=== PATIENT | female | born 1990 | race Caucasian/White ===

== ENCOUNTER → 2016-11-12 | Outpatient (REF) | payer MEDICAID, SELFPAY | LOC: M SFHCADAM 09:13 | PROVIDERS: ATTEND Physician Assistant | DX: Z12.4 Encounter for screening for malignant neoplasm of cervix (principal) ==

== ENCOUNTER → 2017-07-15 | Outpatient (CLI) | payer OTHER ==
[2017-07-15 18:05] LABS: BASO # 0.1 10^3/uL (0.0-0.2); BASO % 0.5 % (0.0-1.0); EOS # 0.1 10^3/uL (0.0-0.50); EOS % 0.5 % (0.0-3.0); IMMATURE GRANULOCYTE % 0.3 % (0-0); LYMPH # 2.6 10^3/uL (1.5-6.5); LYMPH % 19.4 % (24.0-44.0); MEAN CORPUSCULAR HEMOGLOBIN 30.4 pg (27.0-33.0); MEAN CORPUSCULAR HGB CONC 33.1 g/dl (32.0-36.5); MEAN CORPUSCULAR VOLUME 91.8 fl (80.0-96.0); MONO # 0.4 10^3/uL (0.0-0.8); MONO % 2.7 % (0.0-5.0); NEUTROPHILS # 10.1 10^3/uL (1.8-7.7); NEUTROPHILS % 76.6 % (36.0-66.0); PLATELET COUNT, AUTOMATED 203 10^3/uL (150-450); RED CELL DISTRIBUTION WIDTH 12.4 % (11.5-14.5); WHITE BLOOD COUNT 13.2 10^3/uL (4.0-10.0)
[2017-07-15 20:07] LABS: ALBUMIN 4.2 GM/DL (3.2-5.2); ALBUMIN/GLOBULIN RATIO 1.14 (1.00-1.93); ALKALINE PHOSPHATASE 47 U/L (45-117); ALT/SGPT 24 U/L (12-78); AMYLASE 38 U/L (25-115); ANION GAP 10 MEQ/L (8-16); AST/SGOT 9 U/L (15-37); BILIRUBIN,TOTAL 0.2 MG/DL (0.2-1.0); BLOOD UREA NITROGEN 16 MG/DL (7-18); CARBON DIOXIDE LEVEL 21 MEQ/L (21-32); CHLORIDE LEVEL 108 MEQ/L (98-107); GLOMERULAR FILTRATION RATE > 60.0 (>60); GLUCOSE, FASTING 82 MG/DL (70-105); POTASSIUM SERUM 4.5 MEQ/L (3.5-5.1); SODIUM LEVEL 139 MEQ/L (136-145); TOTAL PROTEIN 7.9 GM/DL (6.4-8.2)
== END ==
LOC: M WUC 10:59
PROVIDERS: ATTEND Physician Assistant
DX: R11.10 Vomiting, unspecified (principal)

== ENCOUNTER → 2017-07-19 | Outpatient (REF) | payer OTHER ==
[2017-07-19 13:20] LABS: MEAN CORPUSCULAR HEMOGLOBIN 30.3 pg (27.0-33.0); MEAN CORPUSCULAR HGB CONC 33.6 g/dl (32.0-36.5); MEAN CORPUSCULAR VOLUME 90.3 fl (80.0-96.0); RED CELL DISTRIBUTION WIDTH 12.3 % (11.5-14.5); WHITE BLOOD COUNT 9.7 10^3/uL (4.0-10.0)
[2017-07-19 14:57] LABS: ALBUMIN 3.9 GM/DL (3.2-5.2); ALBUMIN/GLOBULIN RATIO 1.15 (1.00-1.93); ALKALINE PHOSPHATASE 45 U/L (45-117); ALT/SGPT 21 U/L (12-78); ANION GAP 7 MEQ/L (8-16); AST/SGOT 10 U/L (15-37); BILIRUBIN,TOTAL 0.3 MG/DL (0.2-1.0); BLOOD UREA NITROGEN 14 MG/DL (7-18); CARBON DIOXIDE LEVEL 25 MEQ/L (21-32); CHLORIDE LEVEL 109 MEQ/L (98-107); CREATININE FOR GFR 0.59 MG/DL (0.55-1.02); GLOMERULAR FILTRATION RATE > 60.0 (>60); GLUCOSE, FASTING 82 MG/DL (70-105); POTASSIUM SERUM 4.2 MEQ/L (3.5-5.1); SODIUM LEVEL 141 MEQ/L (136-145); TOTAL PROTEIN 7.3 GM/DL (6.4-8.2)
== END ==
LOC: M SFHCADAM 09:54
PROVIDERS: ATTEND Physician Assistant
DX: R11.2 Nausea with vomiting, unspecified (principal)

== ENCOUNTER → 2017-07-28 | Outpatient (CLI) | payer OTHER ==
--- NOTE | 2017-07-28 18:18 | REP ---
Clinical: Nausea and vomiting with abdominal pain. Technique: Chahal scale ultrasound using curved array transducer. Findings: The liver and pancreas are normal in contour, size, and echogenicity without focal hepatic or pancreatic lesions identified. Hyperechoic area adjacent to the right portal vein may reflect hemangioma or nonspecific parenchymal changes. The gallbladder is normal without gallstones, wall thickening or pericholecystic fluid. No biliary ductal dilatation is appreciated, and the common bile duct measures 3.2 mm diameter. The right kidney is normal in reniform shape without hydronephrosis and measures 9.7 x 5.0 x 4.0 cm. No ascites. Visualized portions of the abdominal aorta normal. Impression: 1. Focal area of hyperechoic hepatic parenchyma adjacent to the right portal vein measures 3.4 x 3.8 x 1.2 cm and is otherwise nonspecific. Differential includes, but is not limited to hemangioma and nonspecific parenchymal changes. Consider pre and postcontrast CT of the abdomen using hepatic mass protocol for further evaluation. 2. Otherwise normal right upper quadrant ultrasound.
== END ==
LOC: M WHC 09:19
PROVIDERS: ATTEND Physician Assistant
DX: R11.2 Nausea with vomiting, unspecified (principal)

== ENCOUNTER → 2017-09-19 | Outpatient (CLI) | payer OTHER ==
[2017-09-19 13:02] LABS: PERCENT SATURATION 39.7 % (13.2-45.0)
[2017-09-24 00:06] LABS: H PYLORI SERUM QUANT IgG ABY <0.9 U/mL (0.0-0.8)
== END ==
LOC: M LAB 11:33
PROVIDERS: ATTEND Internal Medicine Gastroenterology
DX: R11.10 Vomiting, unspecified (principal)

== ENCOUNTER → 2020-11-21 | Outpatient (CLI) | payer OTHER | LOC: M WUC 13:07 | PROVIDERS: ATTEND Nurse Practitioner | DX: N91.2 Amenorrhea, unspecified (principal) ==

== ENCOUNTER → 2021-10-23 | Outpatient (CLI) | payer OTHER ==
[2021-10-23 17:25] LABS: HEMATOCRIT 37.1 % (36.0-47.0); HEMOGLOBIN 12.4 g/dl (12.0-15.5); MEAN CORPUSCULAR HEMOGLOBIN 30.7 pg (27.0-33.0); MEAN CORPUSCULAR HGB CONC 33.4 g/dl (32.0-36.5); MEAN CORPUSCULAR VOLUME 91.8 fl (80.0-96.0); PLATELET COUNT, AUTOMATED 354 10^3/uL (150-450); RED BLOOD COUNT 4.04 10^6/uL (4.00-5.40); WHITE BLOOD COUNT 19.3 10^3/uL (4.0-10.0)
[2021-10-23 17:44] LABS: GLUCOSE CHALLENGE TEST 1 HOUR 83 MG/DL (LESS THAN 140)
[2021-10-23 18:38] LABS: HEPATITIS C VIRUS ABY INDEX 0.1 INDEX (<0.8); HIV 1&2 SCREEN CENTAUR NEGATIVE (NEGATIVE)
[2021-10-23 19:06] LABS: GC DNA AMPLIFICATION NEGATIVE (NEGATIVE)
== END ==
LOC: M PLALAB 14:36
PROVIDERS: ATTEND Obstetrics & Gynecology
DX: Z34.82 Encounter for supervision of other normal pregnancy, second trimester (principal); Z36.89 Encounter for other specified antenatal screening

== ENCOUNTER → 2021-11-26 | Outpatient (CLI) | payer OTHER | LOC: M WHC 13:42 | PROVIDERS: ATTEND Obstetrics & Gynecology | DX: Z36.89 Encounter for other specified antenatal screening (principal); Z3A.20 20 weeks gestation of pregnancy ==

== ENCOUNTER 2022-01-11 15:13 | Outpatient (CLI) | payer OTHER ==
[~2022-01-11] VITALS: Ht 160 cm; Wt 100.6 kg
[2022-01-11 15:46] VITALS: BP 117/58
[2022-01-11 16:39] LABS: APPEARANCE, URINE HAZY (CLEAR); BACTERIA, URINE AUTO NEGATIVE (NEGATIVE); BILIRUBIN, URINE AUTO NEGATIVE (NEGATIVE); BLOOD, URINE BLOOD NEGATIVE (NEGATIVE); COLOR, URINE YELLOW (YELLOW); GLUCOSE, URINE (UA) AUTO NEGATIVE (NEGATIVE); KETONE, URINE AUTO TRACE mg/dL (NEGATIVE); LEUKOCYTE ESTERASE, URINE AUTO NEGATIVE (NEGATIVE); MUCUS, URINE SMALL (NEGATIVE); NITRITE, URINE AUTO NEGATIVE (NEGATIVE); PROTEIN, URINE AUTO NEGATIVE (NEGATIVE); RBC, URINE AUTO 0 /HPF (0-3); SPECIFIC GRAVITY URINE AUTO 1.024 (1.002-1.035); SQUAMOUS EPITHELIAL CELL UR AU 3 /HPF (0-6); UROBILINOGEN, URINE AUTO 0.2 mg/dL (0.0-2.0); WBC, URINE AUTO 3 /HPF (0-3)
[2022-01-11] MEDS ORDERED: PRENTAB9 PO (16:53)
[2022-01-11] MEDS ORDERED: ACET650T61 PO (16:53)
[2022-01-11] MEDS ORDERED: HOME MED LIST COMPLETE! XX SCH (16:55)
[2022-01-11] MEDS ORDERED: CALC500C16 PO (17:24)
[2022-01-11 18:15] VITALS: BP 109/66
== END 2022-01-11 18:20 | disposition home or self-care (01) ==
LOC: M LDO 15:13
PROVIDERS: ATTEND Advanced Practice Midwife
DX: O26.892 Other specified pregnancy related conditions, second trimester (principal); R10.30 Lower abdominal pain, unspecified; M54.50 Low back pain, unspecified; O99.212 Obesity complicating pregnancy, second trimester; E66.9 Obesity, unspecified; Z3A.27 27 weeks gestation of pregnancy

== ENCOUNTER → 2022-01-21 | Outpatient (CLI) | payer OTHER ==
[~2022-01-21] MED LIST: ACET650T61 PO; CALC500C16 PO; PRENTAB9 PO
[2022-01-21 16:26] LABS: HEMATOCRIT 32.9 % (36.0-47.0); HEMOGLOBIN 11.2 g/dl (12.0-15.5); MEAN CORPUSCULAR HEMOGLOBIN 32.2 pg (27.0-33.0); MEAN CORPUSCULAR VOLUME 94.5 fl (80.0-96.0); PLATELET COUNT, AUTOMATED 351 10^3/uL (150-450); RED BLOOD COUNT 3.48 10^6/uL (4.00-5.40); WHITE BLOOD COUNT 23.5 10^3/uL (4.0-10.0)
[2022-01-21 17:30] LABS: GC DNA AMPLIFICATION NEGATIVE (NEGATIVE)
== END ==
LOC: M PLALAB 13:08
PROVIDERS: ATTEND Obstetrics & Gynecology
DX: Z36.89 Encounter for other specified antenatal screening (principal); Z3A.24 24 weeks gestation of pregnancy

== ENCOUNTER → 2022-03-18 | Outpatient (REF) | payer OTHER | LOC: M SFHCWAGY 16:46 | PROVIDERS: ATTEND Advanced Practice Midwife | DX: O26.843 Uterine size-date discrepancy, third trimester (principal) ==

== ENCOUNTER → 2022-03-22 | Outpatient (CLI) | payer OTHER | LOC: M WHC 09:24 | PROVIDERS: ATTEND Advanced Practice Midwife | DX: O26.843 Uterine size-date discrepancy, third trimester (principal); Z3A.38 38 weeks gestation of pregnancy ==

== ENCOUNTER 2022-04-15 15:41 | Emergency (ER) | payer OTHER ==
[~2022-04-15] VITALS: Ht 160 cm; Wt 104.6 kg
[~2022-04-15 15:41] MED LIST changes: +IBUP80TA PO; +PERCOCET PO
[2022-04-15 18:19] LABS: HEMOGLOBIN 11.1 g/dl (12.0-15.5); MEAN CORPUSCULAR HEMOGLOBIN 28.9 pg (27.0-33.0); MEAN CORPUSCULAR HGB CONC 31.7 g/dl (32.0-36.5); MEAN CORPUSCULAR VOLUME 91.1 fl (80.0-96.0); PLATELET COUNT, AUTOMATED 608 10^3/uL (150-450); RED BLOOD COUNT 3.84 10^6/uL (4.00-5.40)
[2022-04-15 18:39] LABS: ALBUMIN 2.7 GM/DL (3.2-5.2); ALT/SGPT 15 U/L (12-78); BILIRUBIN,TOTAL 0.2 MG/DL (0.2-1.0); BLOOD UREA NITROGEN 10 MG/DL (7-18); C REACTIVE PROTEIN QUANTITATIV 1.86 MG/DL (0.00-0.30); CALCIUM LEVEL 8.9 MG/DL (8.5-10.1); CARBON DIOXIDE LEVEL 26 MEQ/L (21-32); CHLORIDE LEVEL 109 MEQ/L (98-107); CREATININE FOR GFR 0.58 MG/DL (0.55-1.30); GLOMERULAR FILTRATION RATE > 60.0 (>60); GLUCOSE, FASTING 86 MG/DL (70-100); POTASSIUM SERUM 4.7 MEQ/L (3.5-5.1); SODIUM LEVEL 141 MEQ/L (136-145); TOTAL PROTEIN 6.6 GM/DL (6.4-8.2)
[2022-04-15] MEDS ORDERED: PRED20TA PO (20:22)
[2022-04-15] MEDS ORDERED: predniSONE 20 MG TAB PO ONE (20:25)
[2022-04-15 20:30] VITALS: BP 129/73
== END 2022-04-15 20:50 | disposition home or self-care (01) ==
LOC: M ED 15:41
DX: G51.0 Bell's palsy (principal); K21.9 Gastro-esophageal reflux disease without esophagitis; F17.200 Nicotine dependence, unspecified, uncomplicated; Z86.16 Personal history of COVID-19
CPT/HCPCS: 70450; 70544; 70551; 80053; 85027; 86140; 86618; 99284; J7512

== ENCOUNTER → 2022-10-05 | Outpatient (CLI) | payer OTHER ==
[~2022-10-05] MED LIST changes: +PRED20TA PO
[2022-10-05 14:01] LABS: HCG, SERUM QUALITATIVE POSITIVE (NEGATIVE)
== END ==
LOC: M PLALAB 09:54
PROVIDERS: ATTEND Physician Assistant
DX: N91.2 Amenorrhea, unspecified (principal)

== ENCOUNTER 2022-10-06 08:16 | Emergency (ER) | payer OTHER ==
[~2022-10-06] VITALS: Ht 160 cm; Wt 91.0 kg
[2022-10-06 08:18] VITALS: BP 128/71
== END 2022-10-06 12:14 | disposition left against medical advice (07) ==
LOC: M ED 08:16
DX: Z53.21 Procedure and treatment not carried out due to patient leaving prior to being seen by health care provider (principal)

== ENCOUNTER → 2022-11-02 | Outpatient (CLI) | payer OTHER ==
[2022-11-02 13:59] LABS: HEMATOCRIT 40.7 % (36.0-47.0); HEMOGLOBIN 13.8 g/dl (12.0-15.5); MEAN CORPUSCULAR HEMOGLOBIN 30.8 pg (27.0-33.0); MEAN CORPUSCULAR HGB CONC 33.9 g/dl (32.0-36.5); MEAN CORPUSCULAR VOLUME 90.8 fl (80.0-96.0); PLATELET COUNT, AUTOMATED 393 10^3/uL (150-450); RED BLOOD COUNT 4.48 10^6/uL (4.00-5.40)
[2022-11-02 14:28] LABS: HIV 1&2 SCREEN CENTAUR NEGATIVE (NEGATIVE)
[2022-11-02 15:18] LABS: GC DNA AMPLIFICATION NEGATIVE (NEGATIVE)
== END ==
LOC: M PLALAB 10:48
PROVIDERS: ATTEND Advanced Practice Midwife
DX: Z34.81 Encounter for supervision of other normal pregnancy, first trimester (principal); Z3A.00 Weeks of gestation of pregnancy not specified

== ENCOUNTER → 2023-01-21 | Outpatient (CLI) | payer OTHER | LOC: M WHC 13:37 | PROVIDERS: ATTEND Obstetrics & Gynecology | DX: O34.219 Maternal care for unspecified type scar from previous cesarean delivery (principal); O44.42 Low lying placenta NOS or without hemorrhage, second trimester; Z3A.22 22 weeks gestation of pregnancy ==

== ENCOUNTER → 2023-02-15 | Outpatient (CLI) | payer OTHER ==
[2023-02-15 14:06] LABS: HEMATOCRIT 38.2 % (36.0-47.0); HEMOGLOBIN 12.6 g/dl (12.0-15.5); MEAN CORPUSCULAR HEMOGLOBIN 30.7 pg (27.0-33.0); MEAN CORPUSCULAR VOLUME 92.9 fl (80.0-96.0); PLATELET COUNT, AUTOMATED 367 10^3/uL (150-450); RED BLOOD COUNT 4.11 10^6/uL (4.00-5.40); WHITE BLOOD COUNT 16.3 10^3/uL (4.0-10.0)
[2023-02-15 16:57] LABS: GC DNA AMPLIFICATION NEGATIVE (NEGATIVE)
== END ==
LOC: M PLALAB 09:29
PROVIDERS: ATTEND Obstetrics & Gynecology
DX: Z34.02 Encounter for supervision of normal first pregnancy, second trimester (principal)

== ENCOUNTER → 2023-04-21 | Outpatient (REF) | payer OTHER | LOC: M SFHCWAGY 09:58 | PROVIDERS: ATTEND Advanced Practice Midwife | DX: O34.211 Maternal care for low transverse scar from previous cesarean delivery (principal) ==

== ENCOUNTER → 2023-05-03 | Outpatient (CLI) | payer OTHER ==
[~2023-05-03] MED LIST changes: +SERT50TA29 PO
== END ==
LOC: M WHC 07:30
PROVIDERS: ATTEND Advanced Practice Midwife
DX: O26.843 Uterine size-date discrepancy, third trimester (principal); Z3A.37 37 weeks gestation of pregnancy; O36.63X0 Maternal care for excessive fetal growth, third trimester, not applicable or unspecified

== ENCOUNTER 2023-05-17 05:28 | Inpatient (IN) | payer OTHER ==
[2023-05-17] VITALS (8 sets, daily range): BP systolic 100–111; BP diastolic 49–61; TEMP 98; O2SAT 96–100
[~2023-05-17] VITALS: Ht 160 cm; Wt 115.1 kg
[2023-05-17] MEDS ORDERED: ACET325C5 PO (06:10)
[2023-05-17] MEDS ORDERED: HOME MED LIST COMPLETE! XX SCH (06:15)
[2023-05-17] MEDS ORDERED: LACTATED RINGER'S 1000 ML IV STA (06:32)
[2023-05-17] MEDS ORDERED: BICITRA 30ML SOLN UDC PO ONE (06:35)
[2023-05-17] MEDS ORDERED: LR 1,000 ML IV SCH (06:35)
[2023-05-17] MEDS ORDERED: ceFAZolin SOD 2 GM in IV 1 EA IV ONE (06:35)
[2023-05-17 07:06] LABS: HEMATOCRIT 31.7 % (36.0-47.0); HEMOGLOBIN 10.1 g/dl (12.0-15.5); MEAN CORPUSCULAR HEMOGLOBIN 27.9 pg (27.0-33.0); MEAN CORPUSCULAR HGB CONC 31.9 g/dl (32.0-36.5); MEAN CORPUSCULAR VOLUME 87.6 fl (80.0-96.0); PLATELET COUNT, AUTOMATED 330 10^3/uL (150-450); RED BLOOD COUNT 3.62 10^6/uL (4.00-5.40); WHITE BLOOD COUNT 15.6 10^3/uL (4.0-10.0)
[2023-05-17] MEDS ORDERED: KETOROLAC 60MG 2ML VIAL As Ordered ONE (08:05)
[2023-05-17] MEDS ORDERED: MORPHINE PRES-FREE INJ 10 MG/10 ML VIAL As Ordered ONE (08:05)
[2023-05-17] MEDS ORDERED: ACETAMINOPHEN 1000MG 100ML IV BAG As Ordered ONE (08:05)
[2023-05-17] MEDS ORDERED: PHENYLephrine 500MCG 5ML (100MCG/ML) SYRINGE As Ordered ONE (08:05)
[2023-05-17] MEDS ORDERED: ONDANSETRON 4MG 2ML VIAL As Ordered ONE (08:05)
[2023-05-17] MEDS ORDERED: ePHEDrine SULFATE 25 MG/5 ML(5MG/ML) SYRINGE As Ordered ONE (08:05)
[2023-05-17] MEDS ORDERED: OXYTOCIN 30UNITS IN 0.9% NaCl 500ML IV BAG As Ordered ONE ×2 (08:22→09:30)
[2023-05-17] MEDS ORDERED: HYDROMORPHONE HCL 0.5 MG/ 0.5 ML SYRINGE IV PRN (09:35)
[2023-05-17] MEDS ORDERED: MEPERIDINE 25 MG/ML 1ML VIAL IV PRN (09:35)
[2023-05-17] MEDS ORDERED: METOCLOPRAMIDE INJ 10MG/2ML VIAL IV PRN ×2 (09:35→11:30)
[2023-05-17] MEDS ORDERED: ONDANSETRON 4MG 2ML VIAL IV PRN ×2 (09:35→11:30)
[2023-05-17] MEDS ORDERED: oxyCODONE 5MG TAB PO PRN (09:35)
[2023-05-17] MEDS ORDERED: fentaNYL 100 MCG/2 ML INJECTION IV PRN (09:35)
[2023-05-17] MEDS ORDERED: NALOXONE INJ 0.4MG/1ML VIAL IV PRN ×2 (09:35)
[2023-05-17] MEDS ORDERED: **NOTE PATIENT COMMENT** MISC XX SCH (09:35)
[2023-05-17] MEDS: SLF 3 ML SYR IV SCH ×2 (09:35→17:35)
[2023-05-17] MEDS ORDERED: diphenhydrAMINE 50MG/ML VIAL IV PRN (09:35)
[2023-05-17] MEDS: OXYTOCIN DRIP 30 UNITS in IV 1 EA IV SCH ×3 (09:59→17:35)
[2023-05-17] MEDS ORDERED: MOM 30ML SUSPENSION UDC PO PRN (11:30)
[2023-05-17] MEDS ORDERED: METHYLERGONOVINE MALEATE 0.2 MG TAB PO PRN (11:30)
[2023-05-17] MEDS ORDERED: RHOGAM 300MCG (1500IU) INJ IM SCH (11:30)
[2023-05-17] MEDS ORDERED: SIMETHICONE 80MG CHEW TAB PO PRN (11:30)
[2023-05-17] MEDS: KETOROLAC 30 MG/ML 1ML VIAL IV SCH ×2 (15:05→21:03)
[2023-05-17] MEDS: LR 1,000 ML IV SCH ×2 (18:33→21:03)
[2023-05-17] MEDS: DOCUSATE SODIUM 100MG CAPSULE PO SCH (21:03)
[2023-05-18] MEDS: SLF 3 ML SYR IV SCH (01:35)
[2023-05-18] MEDS: KETOROLAC 30 MG/ML 1ML VIAL IV SCH (02:33)
[2023-05-18 02:34] VITALS: BP 95/53; O2SAT 97
[2023-05-18] MEDS: LR 1,000 ML IV SCH (03:30)
[2023-05-18 06:02] VITALS: BP 103/54; O2SAT 97
[2023-05-18 06:34] LABS: HEMATOCRIT 29.4 % (36.0-47.0); HEMOGLOBIN 9.3 g/dl (12.0-15.5); MEAN CORPUSCULAR HEMOGLOBIN 28.1 pg (27.0-33.0); MEAN CORPUSCULAR HGB CONC 31.6 g/dl (32.0-36.5); MEAN CORPUSCULAR VOLUME 88.8 fl (80.0-96.0); PLATELET COUNT, AUTOMATED 297 10^3/uL (150-450); RED BLOOD COUNT 3.31 10^6/uL (4.00-5.40); WHITE BLOOD COUNT 14.9 10^3/uL (4.0-10.0)
[2023-05-18] MEDS: DOCUSATE SODIUM 100MG CAPSULE PO SCH ×2 (08:28→21:42)
[2023-05-18] MEDS: PRENATAL VITAMINS CHEWABLE TABLET PO SCH (08:28)
[2023-05-18 10:00] VITALS: BP 107/56; O2SAT 96
[2023-05-18] MEDS: IBUPROFEN 800 MG TAB PO SCH ×2 (11:07→19:20)
[2023-05-18] MEDS: PERCOCET 5MG/325MG TAB PO PRN ×3 (11:46→21:42)
[2023-05-18 14:00] VITALS: BP 121/68; O2SAT 95
[2023-05-18 18:00] VITALS: BP 104/63; O2SAT 96
[2023-05-18 22:00] VITALS: BP 98/54; O2SAT 97
[2023-05-19 02:00] VITALS: BP 102/59; O2SAT 100
[2023-05-19] MEDS: IBUPROFEN 800 MG TAB PO SCH ×2 (03:04→11:00)
[2023-05-19 06:00] VITALS: BP 112/59; O2SAT 100
[2023-05-19] MEDS ORDERED: PERCOCET PO (07:42)
[2023-05-19] MEDS ORDERED: IBUP80TA PO (07:42)
[2023-05-19] MEDS ORDERED: COLA100C5 PO (07:42)
[2023-05-19] MEDS: DOCUSATE SODIUM 100MG CAPSULE PO SCH (08:06)
[2023-05-19] MEDS: PRENATAL VITAMINS CHEWABLE TABLET PO SCH (08:06)
[2023-05-19] MEDS: PERCOCET 5MG/325MG TAB PO PRN ×2 (08:10→14:44)
[2023-05-19] MEDS ORDERED: MEASLES,MUMPS,RUBELLA VACCINE INJ (MMR-II) SC.IMMUN ONE (09:00)
[2023-05-19 10:00] VITALS: BP 131/68; O2SAT 100
== END 2023-05-19 17:00 | disposition home or self-care (01) | DRG 540 ==
LOC: M LDI 05:28 → M OBS 10:35
PROVIDERS: ADMIT Obstetrics & Gynecology; ATTEND Obstetrics & Gynecology
PROC: 10D00Z1 Extraction of Products of Conception, Low, Open Approach (ICD-10-PCS; principal; 2023-05-17 07:30)
DX: O34.211 Maternal care for low transverse scar from previous cesarean delivery (principal); Z37.0 Single live birth; Z3A.39 39 weeks gestation of pregnancy

== ENCOUNTER 2023-11-29 08:59 | Inpatient (IN) | payer OTHER ==
[~2023-11-29] VITALS: Ht 160 cm; Wt 90.8 kg
[~2023-11-29 08:59] MED LIST changes: +ACET325C5 PO; +COLA100C5 PO
[2023-11-29] MEDS ORDERED: SERT50TA29 (09:31)
[2023-11-29] MEDS ORDERED: BUSP5TA (09:31)
[2023-11-29 10:07] LABS: HEMATOCRIT 44.5 % (36.0-47.0); HEMOGLOBIN 14.4 g/dl (12.0-15.5); MEAN CORPUSCULAR HEMOGLOBIN 28.6 pg (27.0-33.0); MEAN CORPUSCULAR HGB CONC 32.4 g/dl (32.0-36.5); MEAN CORPUSCULAR VOLUME 88.5 fl (80.0-96.0); PLATELET COUNT, AUTOMATED 367 10^3/uL (150-450); RED BLOOD COUNT 5.03 10^6/uL (4.00-5.40); WHITE BLOOD COUNT 12.4 10^3/uL (4.0-10.0)
[2023-11-29 10:38] LABS: ETHYL ALCOHOL (ETHANOL) < 0.003 % (0.000-0.010); HCG, SERUM QUALITATIVE NEGATIVE (NEGATIVE)
[2023-11-29 10:39] LABS: SALICYLATE LEVEL < 3.0 MG/DL (<30)
[2023-11-29 10:40] LABS: ALBUMIN 4.3 G/DL (3.2-5.2); ALKALINE PHOSPHATASE 76 U/L (46-116); ALT/SGPT 17 U/L (7.0-40); AST/SGOT 12 U/L (<34); BILIRUBIN,DIRECT 0.1 MG/DL (<0.4); BILIRUBIN,TOTAL 0.5 MG/DL (0.3-1.2); BLOOD UREA NITROGEN 12 MG/DL (9-23); CALCIUM LEVEL 9.6 MG/DL (8.5-10.1); CARBON DIOXIDE LEVEL 23 MMOL/L (20-31); CHLORIDE LEVEL 108 MMOL/L (98-107); CREATININE FOR GFR 0.53 MG/DL (0.55-1.30); GLOMERULAR FILTRATION RATE > 60.0 (>60); GLUCOSE, FASTING 83 MG/DL (60-100); POTASSIUM SERUM 3.9 MMOL/L (3.5-5.1); SODIUM LEVEL 140 MMOL/L (136-145); TOTAL PROTEIN 7.6 G/DL (5.7-8.2)
[2023-11-29 10:42] LABS: THYROID STIMULATING HORMONE 0.751 uIU/ML (0.55-4.78)
[2023-11-29 10:48] LABS: AMPHETAMINES LEVEL URINE NEGATIVE (NEGATIVE); METHADONE URINE NEGATIVE (NEGATIVE); OPIATES URINE NEGATIVE (NEGATIVE); PHENCYCLIDINE URINE NEGATIVE (NEGATIVE)
[2023-11-29 10:49] LABS: BARBITURATES URINE NEGATIVE (NEGATIVE); COCAINE METABOLITE URINE NEGATIVE (NEGATIVE)
[2023-11-29 10:52] LABS: BENZODIAZEPINES URINE POSITIVE (NEGATIVE); CANNABINOIDS URINE POSITIVE (NEGATIVE)
[2023-11-29] MEDS ORDERED: MAALOX 30 ML SUSP *UDC PO PRN (21:40)
[2023-11-29] MEDS ORDERED: MOM 30ML SUSPENSION UDC PO PRN (21:40)
[2023-11-29] MEDS ORDERED: ACETAMINOPHEN TAB 650MG DOSE (2X325MG) PO PRN (21:40)
[2023-11-29] MEDS: traZODone 50 MG TAB PO PRN (21:58)
[2023-11-29] MEDS ORDERED: BUSP5TA PO (22:23)
[2023-11-29] MEDS ORDERED: MULTCHW12 PO (22:23)
[2023-11-29] MEDS ORDERED: MUCI600T31 PO (22:23)
[2023-11-29] MEDS ORDERED: CIDE1TAB PO (22:23)
[2023-11-29] MEDS ORDERED: HOME MED LIST COMPLETE! XX SCH (22:25)
[2023-11-30 06:37] VITALS: BP 108/61; TEMP 97.5; O2SAT 97
[2023-11-30] MEDS ORDERED: busPIRone 10 MG TAB PO PRN (09:40)
[2023-11-30] MEDS: SERTRALINE 100 MG TAB PO SCH (10:49)
[2023-11-30 18:18] VITALS: BP 127/73; TEMP 97.5
[2023-11-30] MEDS: hydrOXYzine 50 MG TAB PO PRN (21:00)
[2023-12-01 06:36] VITALS: BP 127/61; TEMP 97.2; O2SAT 98
[2023-12-01] MEDS: lamoTRIgine 25MG TAB PO SCH (09:35)
[2023-12-01] MEDS ORDERED: BUSP10TA PO (10:22)
[2023-12-01] MEDS ORDERED: LAMI25TA PO (10:22)
[2023-12-01] MEDS ORDERED: SERT50TA29 PO (10:22)
[2023-12-01 18:05] VITALS: BP 183/86; TEMP 98.5; O2SAT 97
[2023-12-01 18:15] VITALS: BP 126/75
[2023-12-02 06:34] VITALS: BP 114/57; TEMP 97.1; O2SAT 99
== END 2023-12-02 11:35 | disposition home or self-care (01) | DRG 757 ==
LOC: M ED 08:59 → M ED INP 15:41 → M PSY 16:57
PROVIDERS: ADMIT Student in an Organized Health Care Education/Training Program; ATTEND Student in an Organized Health Care Education/Training Program
DX: F53.0 Postpartum depression (principal); F41.9 Anxiety disorder, unspecified; G47.00 Insomnia, unspecified; E66.9 Obesity, unspecified; Z91.51 Personal history of suicidal behavior; Z91.52 Personal history of nonsuicidal self-harm; K21.9 Gastro-esophageal reflux disease without esophagitis; Z90.49 Acquired absence of other specified parts of digestive tract; Z81.8 Family history of other mental and behavioral disorders; Z81.1 Family history of alcohol abuse and dependence; Z79.899 Other long term (current) drug therapy; Z88.8 Allergy status to other drugs, medicaments and biological substances; Z20.822 Contact with and (suspected) exposure to COVID-19